=== PATIENT | female | born 1995 | race American Indian/Alaskan Native ===

== ENCOUNTER 2020-11-04 14:45 | Emergency (ER) | payer OTHER ==
--- NOTE | 2020-11-04 16:00 | Event Note ---
ED Screening Note Date of service: 11/04/20 Time: 15:47 ED Screening Note: 24-year-old -[place] female presents to the emergency room for right lower quadrant abdominal pain. Patient states she is 10 weeks . She is currently followed by an [facility]ER in [place]. She denies any dysuria. Denies any vaginal discharge or vaginal bleeding. She has started her vitamins. Denies any fever chills. This initial assessment/diagnostic orders/clinical plan/treatment(s) is/are subject to change based on patients health status, clinical progression and re- assessment by fellow clinical providers in the ED. Further treatment and workup at subsequent clinical providers discretion. Patient/guardian urged not to elope from the ED as their condition may be serious if not clinically assessed and managed. Initial orders include:
[2020-11-04 16:39] LABS: HCG Qualitative,Urine Positive (Negative)
[2020-11-04 16:53] LABS: Hemoglobin 11.4 gm/dl (10.1-14.3); Mean Corpuscular HGB Conc 32 % (30-34); Mean Corpuscular Volume 74 fl (79-97); Platelet Count 362 K/mm3 (140-440); Red Blood Count 4.86 M/mm3 (3.65-5.03); Red Cell Distribution Width 15.1 % (13.2-15.2)
[2020-11-04 17:13] LABS: Blood Urea Nitrogen 7 mg/dL (7-17); Calcium 8.6 mg/dL (8.4-10.2); Hemolysis Index 2
[2020-11-04 17:17] LABS: BUN/Creatinine Ratio 18
--- NOTE | 2020-11-04 17:48 | Ultrasound Report ---
ULTRASOUND OBSTETRIC INDICATION / CLINICAL INFORMATION: Lower abdominal pain. Clinical Gestational Age (GA): 7 weeks and 4 days TECHNIQUE: Transabdominal and Transvaginal. COMPARISON: None available. FINDINGS: GESTATIONAL SAC: Well-defined oval shape and intrauterine in location. 3.5 cm with estimated gestatio nal age of 8 weeks and 5 days. YOLK SAC: No significant abnormality. EMBRYO/FETUS: No significant abnormality. - [place]-Rump Length = 1.8 cm = 8.2 weeks.days - Heart Rate, beats per minute (if present) = 166-180 ADNEXA: No significant abnormality FREE FLUID: None. ADDITIONAL FINDINGS: None. IMPRESSION: 1. Single, living intrauterine with estimated sonographic age of 8.3 weeks.days. Signer Name: López Joyce MD Signed: 11/04/2020 5:43 PM Workstation Name: [id number]
--- NOTE | 2020-11-04 17:48 | Ultrasound Report ---
ULTRASOUND OBSTETRIC INDICATION / CLINICAL INFORMATION: Lower abdominal pain. Clinical Gestational Age (GA): 7 weeks and 4 days TECHNIQUE: Transabdominal and Transvaginal. COMPARISON: None available. FINDINGS: GESTATIONAL SAC: Well-defined oval shape and intrauterine in location. 3.5 cm with estimated gestatio nal age of 8 weeks and 5 days. YOLK SAC: No significant abnormality. EMBRYO/FETUS: No significant abnormality. - [place]-Rump Length = 1.8 cm = 8.2 weeks.days - Heart Rate, beats per minute (if present) = 166-180 ADNEXA: No significant abnormality FREE FLUID: None. ADDITIONAL FINDINGS: None. IMPRESSION: 1. Single, living intrauterine with estimated sonographic age of 8.3 weeks.days. Signer Name: López Joyce MD Signed: 11/04/2020 5:43 PM Workstation Name: [id number]
[2020-11-04 19:37] LABS: Bilirubin,Urine NEG (Negative); Blood,Urine NEG (Negative); Color,Urine Straw (Yellow); Protein,Urine <15 mg/dL mg/dL (Negative); RBC,Urine < 1.0 /HPF (0.0-6.0); Urobilinogen,Urine < 2.0 mg/dL (<2.0)
--- NOTE | 2020-11-04 20:00 | Emergency Department Report ---
ED General Adult HPI - General Chief complaint: Back Pain/Injury Stated complaint: BACK/PELVIC PAIN Time Seen by Provider: 11/04/20 19:30 Source: patient Mode of arrival: Ambulatory Limitations: No Limitations - History of Present Illness Initial comments: 24-year-old -[place] female patient presents with complaints of right lower pelvic and abdominal pain and right low back pain x3 days. Patient states she is approximately 10 weeks . She states she had an PHARMACY TECHNOLOGIST appointment on 10/27/2020 in which she had a pelvic exam that was normal. She is G3, . Patient denies any vaginal bleeding, dysuria/hematuria/urinary frequency, vaginal discharge/dyspareunia, fever/chills/sweats, or history of abdominal surgeries. No vomiting or stool changes per patient. She rates her current pain as a 5/10 in severity and describes it as a cramping type pain. Tylenol does help with her pain. Patient states she is not currently sexually active. - Related Data Previous Rx's Medication Instructions Recorded Last Taken Type Promethazine HCl [Promethazine TAB] 12.5 - 25 mg PO [id number] PRN #40 tab 11/04/20 Unknown Rx Allergies Allergy/AdvReac Type Severity Reaction Status Date / Time No Known Allergies Allergy Verified 08/05/20 09:51 ED Review of Systems ROS: Stated complaint: BACK/PELVIC PAIN Other details as noted in HPI Constitutional: denies: chills, diaphoresis, fever, malaise, weakness Respiratory: denies: cough, shortness of breath Cardiovascular: denies: chest pain Gastrointestinal: abdominal pain, nausea. denies: vomiting, diarrhea, constipation, hematemesis Genitourinary: denies: urgency, dysuria, frequency, hematuria, discharge, abnormal menses, dyspareunia Skin: denies: rash, lesions Neurological: denies: headache Hematological/Lymphatic: denies: swollen glands ED Past Medical Hx - Past Medical History Previous Medical History?: No - Surgical History Past Surgical History?: No - Social History Smoking Status: Never Smoker Substance Use Type: None - Medications Home Medications: Home Medications Medication Instructions Recorded Confirmed Last Taken Type Promethazine HCl [Promethazine TAB] 12.5 - 25 mg PO [id number] PRN #40 tab 11/04/20 Unknown Rx ED Physical Exam - General Limitations: No Limitations General appearance: alert, in no apparent distress - Head Head exam: Present: atraumatic, normocephalic - Eye Eye exam: Present: normal appearance - Neck Neck exam: Present: normal inspection - Respiratory Respiratory exam: Present: normal lung sounds bilaterally. Absent: respiratory distress - Cardiovascular Cardiovascular Exam: Present: regular rate, normal rhythm. Absent: systolic murmur, diastolic murmur, rubs, gallop - GI/Abdominal GI/Abdominal exam: Present: soft, tenderness (Mild suprapubic and right lower quadrant tenderness to palpation noted on exam), normal bowel sounds. Absent: distended, guarding, rebound, rigid - Expanded GI/Abdominal Exam Expanded GI/Abdominal exam: Absent: Neves's sign - Back Exam Back exam: Absent: CVA tenderness (R), CVA tenderness (L) - Neurological Exam Neurological exam: Present: alert, oriented X3, normal gait - Psychiatric Psychiatric exam: Present: normal affect, normal mood - Skin Skin exam: Present: warm, dry, intact, normal color. Absent: rash ED Course Vital Signs 11/04/20 11/04/20 11/04/20 15:14 19:59 20:05 Temperature 99.0 F 98.7 F Pulse Rate 106 H 88 Respiratory 15 20 Rate Blood Pressure 141/80 113/73 O2 Sat by Pulse 100 99 98 Oximetry ED Medical Decision Making - Lab Data Result diagrams: 11/04/20 16:43 11/04/20 16:43 Lab Results 11/04/20 11/04/20 11/04/20 Range/Units 15:55 16:43 16:43 WBC 7.4 (4.5-11.0) K/mm3 RBC 4.86 (3.65-5.03) M/mm3 Hgb 11.4 (10.1-14.3) gm/dl Hct 36.0 (30.3-42.9) % MCV 74 L (79-97) fl MCH 24 L (28-32) pg MCHC 32 (30-34) % RDW 15.1 (13.2-15.2) % Plt Count 362 (140-440) K/mm3 Sodium 135 L (137-145) mmol/L Potassium 3.8 (3.6-5.0) mmol/L Chloride 98.6 (98-107) mmol/L Carbon Dioxide 24 (22-30) mmol/L Anion Gap 16 mmol/L BUN 7 (7-17) mg/dL Creatinine 0.4 L (0.6-1.2) mg/dL Estimated GFR > 60 ml/min BUN/Creatinine Ratio 18 % Glucose 87 (65-100) mg/dL Calcium 8.6 (8.4-10.2) mg/dL HCG, Quant (0-4) mIU/mL Urine Color (Yellow) Urine Turbidity (Clear) Urine pH (5.0-7.0) Ur Specific [place] (1.003-1.030) Urine Protein (Negative) mg/dL Urine Glucose (UA) (Negative) mg/dL Urine Ketones (Negative) mg/dL Urine Blood (Negative) Urine Nitrite (Negative) Urine Bilirubin (Negative) Urine Urobilinogen (<2.0) mg/dL Ur Leukocyte Esterase (Negative) Urine WBC (Auto) (0.0-6.0) /HPF Urine RBC (Auto) (0.0-6.0) /HPF U Epithel Cells (Auto) (0-13.0) /HPF Urine HCG, Qual Positive A (Negative) 11/04/20 11/04/20 Range/Units 16:43 Unknown WBC (4.5-11.0) K/mm3 RBC (3.65-5.03) M/mm3 Hgb (10.1-14.3) gm/dl Hct (30.3-42.9) % MCV (79-97) fl MCH (28-32) pg MCHC (30-34) % RDW (13.2-15.2) % Plt Count (140-440) K/mm3 Sodium (137-145) mmol/L Potassium (3.6-5.0) mmol/L Chloride (98-107) mmol/L Carbon Dioxide (22-30) mmol/L Anion Gap mmol/L BUN (7-17) mg/dL Creatinine (0.6-1.2) mg/dL Estimated GFR ml/min BUN/Creatinine Ratio % Glucose (65-100) mg/dL Calcium (8.4-10.2) mg/dL HCG, Quant 23480 H (0-4) mIU/mL Urine Color Straw (Yellow) Urine Turbidity Clear (Clear) Urine pH 7.0 (5.0-7.0) Ur Specific [place] 1.006 (1.003-1.030) Urine Protein <15 mg/dl (Negative) mg/dL Urine Glucose (UA) Neg (Negative) mg/dL Urine Ketones Neg (Negative) mg/dL Urine Blood Neg (Negative) Urine Nitrite Neg (Negative) Urine Bilirubin Neg (Negative) Urine Urobilinogen < 2.0 (<2.0) mg/dL Ur Leukocyte Esterase Neg (Negative) Urine WBC (Auto) 1.0 (0.0-6.0) /HPF Urine RBC (Auto) < 1.0 (0.0-6.0) /HPF U Epithel Cells (Auto) 1.0 (0-13.0) /HPF Urine HCG, Qual (Negative) - Radiology Data ULTRASOUND OBSTETRIC INDICATION / CLINICAL INFORMATION: Lower abdominal pain. Clinical Gestational Age (GA): 7 weeks and 4 days TECHNIQUE: Transabdominal and Transvaginal. COMPARISON: None available. FINDINGS: GESTATIONAL SAC: Well-defined oval shape and intrauterine in location. 3.5 cm with estimated gestational age of 8 weeks and 5 days. YOLK SAC: No significant abnormality. EMBRYO/FETUS: No significant abnormality. - [place]-Rump Length = 1.8 cm = 8.2 weeks.days - Heart Rate, beats per minute (if present) = 166-180 ADNEXA: No significant abnormality FREE FLUID: None. ADDITIONAL FINDINGS: None. IMPRESSION: 1. Single, living intrauterine with estimated sonographic age of 8.3 weeks.days. - Medical Decision Making 24-year-old -[place] female patient presents with complaints of right lower pelvic and abdominal pain and right low back pain x3 days. Patient states she is approximately 10 weeks . She states she had an PHARMACY TECHNOLOGIST appointment on 10/27/2020 in which she had a pelvic exam that was normal. She is G3, . Patient denies any vaginal bleeding, dysuria/hematuria/urinary frequency, vaginal discharge/dyspareunia, fever/chills/sweats, or history of abdominal surgeries. No vomiting or stool changes per patient. She rates her current pain as a 5/10 in severity and describes it as a cramping type pain. Ty lenol does help with her pain. Patient states she is not currently sexually active. Ultrasound shows 8.3-week viable IUP without any abnormalities. No significant abnormalities noted on CBC or CMP. No infection noted on UA. Patient is afebrile and nontachycardic. I do not suspect appendicitis at this time given normal white count and normal vitals. Patient states she has a follow-up appoin tment with her PHARMACY TECHNOLOGIST on 11/08/2020. Discussed in great detail signs and symptoms that should prompt immediate return to the emergency department in detail with patient who verbalizes understanding. She is otherwise well- appearing and stable for discharge home. Patient to use Tylenol as needed for pain. Critical care attestation.: If time is entered above; I have spent that time in minutes in the direct care of this critically ill patient, excluding procedure time. ED Disposition Clinical Impression: Abdominal pain in , Nausea/vomiting in Disposition: DC-01 TO HOME OR SELFCARE Is pt being admited?: No Condition: Stable Instructions: Round Ligament Pain, Abdominal Pain During Additional Instructions: Please follow up with your OBGYN as scheduled 11/08/20 Prescriptions: Promethazine HCl [Promethazine TAB] 12.5 - 25 mg PO [id number] PRN #40 tab PRN Reason: Nausea
[2020-11-04 20:01] VITALS: BP 113/73
== END 2020-11-04 20:15 | disposition home or self-care (01) ==
LOC: ED 14:45
DX: O21.8 Other vomiting complicating pregnancy (principal); O26.891 Other specified pregnancy related conditions, first trimester; R10.2 Pelvic and perineal pain; Z3A.10 10 weeks gestation of pregnancy; Z79.899 Other long term (current) drug therapy
CPT/HCPCS: 36415; 76801; 76802; 76817; 80048; 81001; 81025; 84702; 85027